=== PATIENT | male | born 1960 | race Two or more races ===

== ENCOUNTER 2024-11-05 14:56 | Emergency (ER) | payer OTHER ==
[2024-11-05 15:31] VITALS: RESP 16; BMI 31.6
[2024-11-05 15:59] LABS: ABSOLUTE IMMATURE GRANULOCYTES 0.03 x10^3/uL (0.0-0.031); BASOPHILS # 0.03 x10^3/uL (0.01-0.08); EOSINOPHIL % 2.4 % (0.8-7.0); EOSINOPHILS # 0.13 x10^3/uL (0.04-0.54); HEMATOCRIT 46.2 % (40.1-51.0); MCHC 34.6 g/dl (32.3-36.5); MEAN CELL VOLUME 86.2 fl (79.0-92.2); MEAN PLT VOLUME 11.4 fl (9.4-12.4); MONOCYTE # 0.53 x10^3/uL (0.30-0.82); MONOCYTE % 9.8 % (5.3-12.2); PLATELET COUNT 228 x10^3/uL (163-337); RDW 12.5 % (12.2-16.4)
[2024-11-05] MEDS: ACETAMINOPHEN 1000 MG/100 ML BAG IVPB ONE (16:00)
[2024-11-05] MEDS: FAMOTIDINE 20 MG/50 ML IVPB 20 MG/50 ML MG IVPB ONE (16:00)
[2024-11-05] MEDS: SODIUM CHLORIDE 1,000 ML IV STA (16:09)
[2024-11-05 16:21] LABS: POTASSIUM 3.7 mmol/L (3.5-5.1)
[2024-11-05 16:22] LABS: ALBUMIN 3.7 g/dl (3.4-5.0); CALCIUM 9.7 mg/dL (8.5-10.1)
[2024-11-05 16:24] LABS: BLOOD UREA NITROGEN 21.7 mg/dL (7-18)
[2024-11-05 16:25] LABS: CREATININE 1.4 mg/dL (0.55-1.3)
[2024-11-05 16:28] LABS: BILIRUBIN,TOTAL 0.4 mg/dL (0.2-1); TOT PROT 6.8 g/dl (6.4-8.2)
[2024-11-05 18:01] VITALS: TEMP 98.5
[2024-11-05 19:45] LABS: URINE APPEARANCE Error; URINE BILIRUBIN NEGATIVE (NEGATIVE); URINE COLOR YELLOW; URINE GLUCOSE (UA) NEGATIVE (NEGATIVE); URINE KETONE NEGATIVE (NEGATIVE); URINE LEUK ESTERASE NEGATIVE (NEGATIVE); URINE NITRITE NEGATIVE (NEGATIVE); URINE PROTEIN NEGATIVE (NEGATIVE); URINE UROBILINOGEN 0.2 mg/dL (0.2-1.0)
[2024-11-05 21:14] VITALS: BP 139/76; PULSE 65
== END 2024-11-05 20:23 | disposition home or self-care (01) ==
LOC: JER 14:56
PROC: 3E033GC Introduction of Other Therapeutic Substance into Peripheral Vein, Percutaneous Approach (ICD-10-PCS; principal; 2024-11-05)
PROC: 3E033NZ Introduction of Analgesics, Hypnotics, Sedatives into Peripheral Vein, Percutaneous Approach (ICD-10-PCS; 2024-11-05)
PROC: 3E0337Z Introduction of Electrolytic and Water Balance Substance into Peripheral Vein, Percutaneous Approach (ICD-10-PCS; 2024-11-05)
DX: K57.90 Diverticulosis of intestine, part unspecified, without perforation or abscess without bleeding (principal); R19.7 Diarrhea, unspecified; K59.00 Constipation, unspecified; R10.32 Left lower quadrant pain
CPT/HCPCS: 36415; 74177-TC; 80053; 81003; 83690; 85025; 87086; 93005; 93010; 99285-25; J0131; Q9967

== ENCOUNTER 2024-12-01 21:00 | Emergency (ER) | payer OTHER ==
[2024-12-01 21:07] VITALS: RESP 22
[2024-12-01 21:11] VITALS: BP 155/84; PULSE 68; TEMP 98.8; BMI 31.6
[2024-12-01] MEDS: FLUTICASONE PROP 0.05% 16 GM NASAL SPRAY NS ONE (22:12)
== END 2024-12-01 22:13 | disposition home or self-care (01) ==
LOC: JER 21:00
DX: R09.81 Nasal congestion (principal)
CPT/HCPCS: 99283-25